=== PATIENT | male | born 1960 | race Caucasian/White ===

== ENCOUNTER → 2017-09-07 | Outpatient (CLI) | payer BC ==
--- NOTE | 2017-09-07 10:13 | RADIOLOGY REPORT PS360 ---
FOOT-RT-3 VIEWS HISTORY: Right foot pain BILAT FOOT PAIN ORDERING PHYSICIAN: Jazmine TRAN PATIENT AGE: 57 years COMPARISON: None FINDINGS: No fracture or dislocation. No lytic or blastic change. There is normal mineralization.. The joint spaces are well-preserved. No significant degenerative/arthritic changes. No erosive changes evident. There is a minimal amount of soft tissue calcification noted posterior to the posterior talar low calcaneal joint nonspecific. There is a small calcaneal spur. There is lobulation along the cortex of the anterior distal tibia with some minimal subarticular cystic changes. This could be related to an old fracture. IMPRESSION: 1. No acute finding. 2. Possible old healed fracture of the anterior distal tibia. 3. Small calcaneal spur
--- NOTE | 2017-09-07 10:15 | RADIOLOGY REPORT PS360 ---
FOOT-LT-3 VIEWS HISTORY: Left foot pain BILAT FOOT PAIN ORDERING PHYSICIAN: Jazmine TRAN PATIENT AGE: 57 years COMPARISON: None FINDINGS: There are minimal osteoarthritic changes of the first metatarsophalangeal joint with 2 mm medial translation of the proximal phalanx of the great toe. No fracture or dislocation. No lytic or blastic change. There is normal alignment otherwise. There is a small calcaneal spur nonspecific IMPRESSION: 1. Minimal osteoarthritis first metatarsophalangeal joint 2. Otherwise negative
== END ==
LOC: RAD 09:16
DX: M79.671 Pain in right foot (principal); M79.672 Pain in left foot